=== PATIENT | male | born 1985 | race Two or more races ===

== ENCOUNTER 2024-03-30 17:23 | Emergency (ER) | payer MEDICAID, SELFPAY ==
--- NOTE | ~2024-03-30 | XR_ITS ---
EXAMINATION: XR HAND, LEFT CLINICAL INFORMATION: Pain following injury COMPARISON: June 20, 2009 TECHNIQUE: PA, lateral, and oblique views of the left hand. FINDINGS: There is no evidence of acute fracture. There is healed fracture deformity] midshaft of fifth metacarpal bone with marginal spurring. The rest of bones are unremarkable and soft tissues are normal. XR/XR hand LT 2V IMPRESSION: No acute fracture seen. Healed fracture deformity of fifth metacarpal Electronically signed by: Edinson Smith MD 03/30/2024 06:40 PM EDT RP
--- NOTE | ~2024-03-30 | XR_ITS ---
EXAMINATION: XR ELBOW, LEFT CLINICAL INFORMATION: Pain in elbow COMPARISON: None available. TECHNIQUE: AP, lateral, and oblique views of the left elbow. Positioning was difficult for this patient certainly images are suboptimal FINDINGS: The bones and soft tissues are normal. No fracture or joint effusion. Alignment is anatomic. Joint spaces are maintained. XR/XR elbow LT min 3V IMPRESSION: No fracture seen. Technically limited study Electronically signed by: Edinson Smith MD 03/30/2024 06:41 PM EDT
--- NOTE | ~2024-03-30 | CT_ITS ---
EXAM: CT HEAD WITHOUT CONTRAST CT CERVICAL SPINE INDICATION: head injury, pain TECHNIQUE: A noncontrast CT scan was performed from the skull base to the vertex. A noncontrast CT scan of the cervical spine was performed from the base of the skull through T1 at 2.5 mm and 0.625 mm collimation. Coronal and sagittal reformats were obtained at the acquisition workstation. This CT examination was performed using dose optimization techniques as appropriate, variously including the following: * Automated exposure control * Adjustment of mA and/or kV according to patient size (this includes techniques or standardized protocols for targeted exams where dose is matched to indication/reason for exam; i.e. extremities or head) * Use of iterative reconstruction technique Dose length product is 1136 mGy-cm. COMPARISON: CT head 10/03/2011 FINDINGS: Head: There is no evidence of acute intracranial hemorrhage or edematous large vessel territorial infarction. No abnormal mass effect or midline shift is seen. Leyva to white matter differentiation is well preserved. No abnormal extra-axial fluid collections are identified. The ventricles are normal in size. No abnormal attenuation in the brain parenchyma. Soft tissue swelling and scalp hematoma in the left frontoparietal region. No acute calvarial fracture.. The nasal septum is deviated to the right. Paranasal sinuses and mastoid air cells are well-aerated. Cervical Spine: The atlantooccipital and atlantoaxial articulations remain well aligned. Slight reversal of the normal cervical lordosis. Otherwise, there is anatomic alignment of the vertebral bodies and posterior elements. No evidence of acute fracture or subluxation. Multilevel mild disc degenerative changes, including C4-5, C5-6, C6-7. Bone central canal is maintained obtained.. No prevertebral soft tissue swelling. The paraspinal soft tissues are unremarkable. There is no cervical lymphadenopathy. The thyroid gland is unremarkable. The visualized lung apices are clear. CT/CT cervical spine wo IV con IMPRESSION: No CT evidence of acute intracranial hemorrhage or edematous territorial infarction. Soft tissue swelling and prominent scalp hematoma in the left frontoparietal region. No CT evidence of acute cervical spine fracture or malalignment. Mild cervical spondylosis. Electronically signed by: Zaire Michael MD 03/30/2024 06:25 PM EDT
[2024-03-30 17:31] VITALS: BP 116/78; PULSE 114; RESP 20; TEMP 37.2; O2SAT 98; BMI 25.1
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
[2024-03-30 18:37] LABS: MANUAL DIFF FLAG NO
[2024-03-30] MEDS: Diphth,Pertus(ACell),Tet Adult 0.5 ML SYRINGE IM (18:42)
[2024-03-30 18:44] LABS: Basophils Percent Auto 0.2 % (0-2); Eosinophils Percent Auto 0.1 % (0-4); Hematocrit 42.9 % (42.0-52.0); Hemoglobin 14.2 g/dl (14.0-18.0); Imm Gran Abs Auto 0.04 X10*3/uL (0.00-0.03); Imm Gran Pct Auto 0.4 % (0.0-0.4); Lymphocytes Percent Auto 11.4 % (20-40); Mean Corpuscular HGB Conc 33.1 g/dl (31.0-36.0); Mean Corpuscular Hemoglobin 30.1 pg (27.0-33.0); Mean Corpuscular Volume 91.1 fL (80.0-98.0); Mean Platelet Volume 9.3 fL (9.4-12.4); Monocytes Absolute Auto 0.8 X10*3/uL (0.1-1.2); Monocytes Percent Auto 8.6 % (2-11); Neutrophils Absolute Auto 7.2 x10*3/uL (2.0-8.3); Neutrophils Percent Auto 79.3 % (45-73); Platelet Count 238 X10*3/uL (160-400); Red Blood Count 4.71 X10*6/uL (4.60-5.80); Red Cell Distribution Width 15.2 % (11.0-16.0); White Blood Count 9.1 X10*3/uL (4.8-10.8)
[2024-03-30 18:52] LABS: Ethanol 35 mg/dL
[2024-03-30 18:56] LABS: Alanine Aminotransferase 52 U/L (0-40); Albumin Level 4.6 g/dL (3.5-5.0); Alkaline Phosphatase 72 U/L (39-117); Anion Gap 13 (12-20); Aspartate Amino Transferase 46 U/L (5-37); Bilirubin Total 0.7 mg/dL (0.0-1.0); Blood Urea Nitrogen 14 mg/dL (9-16); Calcium 9.6 mg/dL (8.4-10.2); Carbon Dioxide 27 mmol/L (22-29); Chloride 108 mmol/L (96-108); Creatinine Clr Calc Pharmacy 99.8; Estimated Glomerular Filt Rate > 60; Glucose Random 86 mg/dL (60-115); Magnesium 2.5 mg/dL (1.6-2.6); Potassium 3.3 mmol/L (3.3-5.1); Sodium 145 mmol/L (135-145); Total Protein 7.9 g/dL (6.5-8.0)
[2024-03-30] MEDS: Cyclobenzaprine HCl 5 MG TABLET PO (19:11)
--- NOTE | 2024-03-30 19:13 | PC.NURSE ---
Pt a&ox3, no signs of distress. Pt sitting up in bed, eating and drinking water. Pt denies allergies to meds Pt reports 12/27 pain Pt medicated per mar Plan of care ongoing.
[2024-03-30 19:17] LABS: Influenza A PCR NEGATIVE (Negative); Influenza B PCR NEGATIVE (Negative); Resp Syncy Virus RNA Qual PCR NEGATIVE (Negative); SARS COV2 PCR INHOUSE NEGATIVE (Negative)
--- NOTE | 2024-03-30 19:19 | PC.NURSE ---
This RN assumed pt care @ 1900. Plan of care ongoing.
[2024-03-30 19:52] VITALS: BP 140/86; PULSE 92; RESP 17; TEMP 36.8; O2SAT 100
[2024-03-30 20:01] VITALS: BP 140/86; PULSE 92; RESP 17; TEMP 36.8; O2SAT 100
--- NOTE | 2024-03-30 20:04 | PC.NURSE ---
Per provider Section not valid and pt is allowed to leave if he can produce a sober ride. Pts family arrived to the ED to pick him up. Pt d/c with family.
== END 2024-03-30 20:06 | disposition home or self-care (01) ==
PROVIDERS: Physician Assistant Medical; Emergency Provider Emergency Medicine
DX: F10.120 Alcohol abuse with intoxication, uncomplicated (principal); Y90.1 Blood alcohol level of 20-39 mg/100 ml; S00.01XA Abrasion of scalp, initial encounter; Y04.2XXA Assault by strike against or bumped into by another person, initial encounter; M25.522 Pain in left elbow; Z03.818 Encounter for observation for suspected exposure to other biological agents ruled out; Y93.9 Activity, unspecified; Y92.9 Unspecified place or not applicable; Y99.9 Unspecified external cause status; Z23 Encounter for immunization
CPT/HCPCS: 0241U; 36415; 70450; 72125; 73080; 73120; 80053; 80307; 83735; 85025; 90471; 90715; 99284

== ENCOUNTER 2025-05-14 11:02 | Outpatient (REF) | payer MEDICAID, SELFPAY ==
--- OUTSIDE RECORDS SUMMARY | 2025-04-25 06:21 | XMS_ITS ---
Author Organization [facility] Address [address] [place] [address] Care Team Providers Care Bakery Team Leader Name Role Phone [facility] Primary Care Provider [facility] Haseeb Unavailable [phone] REASON FOR VISIT correspondence Encounters Encounter Location Date Provider Diagnosis [facility] [address] [place], [place] [phone] 04/25/2025 [facility] Plan Of Treatment No Information Progress Notes * John HUMPHREYOB:[birth year] (39 yo M)Acc No.[id number]:04/25/2025 Patient: Armen HDEZlaisha :1985 A ge:39 Y S ex:Male Address:[address] [place], [place] [address], [place], [address] * * Date:
[2025-05-14 13:19] LABS: MANUAL DIFF FLAG NO
[2025-05-14 13:40] LABS: Hematocrit 42.1 % (42.0-52.0); Hemoglobin 14.0 g/dl (14.0-18.0); Imm Gran Abs Auto 0.03 X10*3/uL (0.00-0.03); Imm Gran Pct Auto 0.6 % (0.0-0.4); Lymphocytes Absolute Auto 1.7 X10*3/uL (1.2-4.9); Mean Corpuscular HGB Conc 33.3 g/dl (31.0-36.0); Mean Corpuscular Hemoglobin 28.9 pg (27.0-33.0); Mean Corpuscular Volume 87.0 fL (80.0-98.0); NRBC Abs Auto 0.000 X10*3/uL (0.0-0.012); NRBC Pct Auto 0.0 /100WBC (0.0-0.2); Platelet Count 191 X10*3/uL (160-400); Red Blood Count 4.84 X10*6/uL (4.60-5.80); White Blood Count 4.9 X10*3/uL (4.8-10.8)
[2025-05-14 14:20] LABS: Alanine Aminotransferase 56 U/L (0-40); Albumin Level 4.1 g/dL (3.5-5.0); Alkaline Phosphatase 51 U/L (39-117); Anion Gap 9 (12-20); Aspartate Amino Transferase 32 U/L (5-37); Blood Urea Nitrogen 9 mg/dL (9-16); Calcium 8.8 mg/dL (8.4-10.2); Carbon Dioxide 29 mmol/L (22-29); Chloride 106 mmol/L (96-108); Cholesterol 230 mg/dL (<200); Estimated Glomerular Filt Rate > 60; HDL Cholesterol 47 mg/dL (>40); Potassium 4.3 mmol/L (3.3-5.1); Sodium 140 mmol/L (135-145); Total Protein 6.3 g/dL (6.5-8.0); Triglycerides 216 mg/dL (<150)
--- OUTSIDE RECORDS SUMMARY | 2025-05-14 14:32 | XMS_ITS | Patient Health Record ---
Author Organization [facility] Address [address] [place] [address] Care Team Providers Care Stereotype Caster Name Role Phone [facility] [phone] Reason For Referral No Information Encounters Encounter Location Date Provider Diagnosis [facility] [address] [facility] [address] [place], [place] [id number] 04/12/2025 [facility] [address] [place], [place] [phone] 04/25/2025 [facility] Plan Of Treatment No Information Insurance Providers Payer Name Payer Address Payer Phone Subscriber Number Group Number Insured Name Patient Relationship to Insured Coverage Start Date Coverage End Date [place] Medicaid Standard [address] [place] [phone] [id number] Sanchez Lott Self - patient is the insured
--- OUTSIDE RECORDS SUMMARY | 2025-05-14 14:32 | XMS_ITS | Clinical Summary ---
Author Organization [facility] Address [address] [place] [address] Care Team Providers Care Tools Developer Name Role Phone Unavailable Primary Care Provider Unavailabl e Social History Tobacco Use Types Packs/Day Years Used Date Smoking Tobacco: Never Assessed Sex and Gender Information Value Date Recorded Sex Assigned at Not on file Legal Sex Male 1:46 AM EST Gender Identity Not on file Sexual Orientation Not on file Plan of Treatment Health Maintenance Due Date Last Done Comments DTaP,Tdap,and Td Vaccines (1 - Tdap) 2004 Hepatitis B Vaccines (1 of 3 - 19+ 3-dose series) 2004 HPV Vaccines (1 - 3-dose SCD M series) 2012 Depression Screening 06/20/2024 COVID-19 Vaccine (1 - 2024-2 6 season) 2025 Influenza Vaccine (#1) 2025 RSV Immunization Adult Patie nts (1 - 1-dose 75+ series) 2060 HIB Vaccines Aged Out No longer eligi ble based on patient's age to complete this topic Hepatitis A Vaccines Aged Out No long er eligible based on patient's age to complete this topic IPV Vaccines Aged Out No longer eligi ble based on patient's age to complete this topic MMR Vaccines Aged Out No longer eligi ble based on patient's age to complete this topic Meningococcal ACWY Vaccine Aged Out N o longer eligible based on patient's age to complete this topic Meningococcal B Vaccine Aged Out No l onger eligible based on patient's age to complete this topic Pneumococcal Vaccine: Pediat rics (0 to 5 Years) and At-Risk Patients (6 to 49 Years) Aged Out No longer eligible b ased on patient's age to complete this topic RSV Immunization Patients Un geronimo 20 months Aged Out No longer eligible b ased on patient's age to complete this topic Varicella Vaccines Aged Out No longer eligible based on patient's age to complete this topic
--- OUTSIDE RECORDS SUMMARY | 2025-05-14 14:32 | XMS_ITS | Clinical Summary ---
Author Organization [employer] Address [address] [place] [address] Care Team Providers Care Early Education Teacher Name Role Phone Elyssa Valera YASMIN Unavailable [phone] Irma Troncoso Unavailable Ayesha Avila MD Primary Care Provide r Allergies Active Allergy Reactions Criticality Noted Date Comments Bee Venom Swelling 03/13/2024 Active Problems Problem Noted Date Diagnosed Date Class 2 obesity due to exces s calories without serious comorbidity with body mass index (BMI) of 35.0 to 35.9 in adult 03/27/2025 Assessment & Plan (03/27/2025 4:18 PM EDT): Extensive counseling about healthy diet and exercise done today I will refer patient to database specialist I will order blood work and contact him with results Bipolar disorder, current episode mixed, moderat e ([facility]) 03/27/2025 Assessment & Plan (03/27/2025 4:18 PM EDT): Continue to follow with psychiatrist I ask for next appointment to help with fix's medication to put in the chart Mild episode of recurrent major depressive disor geronimo 03/27/2025 Assessment & Plan (03/27/2025 4:18 PM EDT): Continue to follow with psychiatrist and therapist He will provide with medication list on next appointment Encounters Date Type Department Care Team Description 04/26/2025 Travel 03/27/2025 2:15 PM EDT Office Visit [facility] [address] [place] [address] Ayesha Avila MD Class 2 obesity due to excess calories without serious comorbidity with body mass index (BMI) of 35.0 to 35.9 in adult (Primary Dx); Dietary counseling; Exercise counseling; Bipolar disorder, current episode mixed, moderate (CMS/HCC) (HCC); Encounter for immunization; Mild episode of recurrent major depressive disorder (CMS/HCC) 03/27/2025 Travel 03/26/2025 Telephone [facility] [address] [place] [address] Ayesha Avila MD chart prep 03/19/2025 Patient Outreach [facility] [address] [place] [address] Ayesha Avila MD Pre-visit Planning (SDOH screening negative and tobacco screening positive) from Last 3 Months Immunizations Immunization Administration Dates Next Due DTaP 09/12/2022 Hep A / Hep B 10/10/2022,09/12/2022,02/19/2022 INFLUENZA INJECTABLE QUADRIV ALANT CCIIV4 MDCK Multi-dose vial 03/25/2022 Influenza injectable quadriv alent IIV4 with preservative 04/12/2023 Influenza, seasonal, injecta ble, preservative free 03/27/2025 Td (adult), 5 Lf tetanus tox oid, preservative free, adsorbed 10/06/2015 Tdap 03/30/2024 Social History Tobacco Use Types Packs/Day Years Used Date Smoking Tobacco: Every Day Cigarettes Tobacco Cessation:Ready to Q uit: Not Asked; Counseling Given: Not Answered Depression Answer Date Recorded Patient Health Questionnaire-9 Score 10 03/27/2025 Patient Health Questionnaire-9 Score 10 03/27/2025 Last PHQ-9: Questionnaire Data Not on file 1 Housing Stability Answer Date Recorded What is your housing situation today? I have ander gordon 03/19/[address] you li ve. Do you have problems with any of the following? None of the above 03/19/2025 Food Insecurity Answer Date Recorded Within the past 12 months, y ou worried that your food would run out before you got money to buy more: Never True 03/19/2025 Within the past 12 months,th e food you bought just didn't last and you didn't have enough money to get more: Never True Transportation Answer Date Recorded In the past 12 months, has l ack of transportation kept you from medical appts, meetings, work or from getting things needed for daily living? No 03/19/2025 Utilities Answer Date Recorded In the past 12 months, has t he electric, gas, oil or water company threatened to shut off services in your home? No 03/19/2025 Depression Answer Date Recorded Patient Health Questionnaire-2 Score 1 03/27/2025 Internet Access Answer Date Recorded Internet Access Q1 Yes 03/19/2025 Internet Access Q2 Not on file 03/19/2025 Sex and Gender Information Value Date Recorded Sex Assigned at Male 04/19/2022 10:37 AM EDT Legal Sex Male 10:37 AM EDT Gender Identity Male 04/19/2022 10:37 AM EDT Sexual Orientation Don't know 04/19/2022 10 :37 AM EDT Last Filed Vital Signs Vital Sign Reading Time Taken Comments Blood Pressure 110/70 03/27/2025 2:12 PM EDT Pulse 106 03/27/2025 2:12 PM EDT Temperature 36.3 C (97.3 F) 03/27/2025 2:12 PM EDT Respiratory Rate 18 03/27/2025 2:12 PM EDT Oxygen Saturation 94% 03/27/2025 2:12 PM EDT Inhaled Oxygen Concentration - - Weight 106 kg (234 lb) 03/27/2025 2:12 PM EDT Height 170.2 cm (5' 7 ) 03/27/2025 2:12 PM EDT Body Mass Index 36.65 03/27/2025 2:12 PM EDT Plan of Treatment Upcoming Encounters Date Type Department Care Team (Late st Contact Info) Description 06/10/2025 1:30 PM EST Telemedicine [facility] [address] [place] [address] Ayesha Avila MD [address] [place] [address] 06/10/2025 2:00 PM EST Nutrition [facility] [address] [place] [address] Whit Stacy, RD [address] [place] [address] Health Maintenance Due Date Last Done Comments Family Planning (PISQ) 2000 HPV Vaccines (1 - Male 3-dose series) 2000 Pneumococcal Vaccine: Pediatrics (0 to 5 Years) and At-Risk Patients (6 to 49) Years (1 of 2 - PCV) 2004 Hepatitis B Vaccines (4 of 4 - Hep B Twinrix 4-dose series) 02/19/2023 10/10/2022, 09/12/2022, 02/19/2022 COVID-19 Vaccine (6 - season) 2025 04/12/2023, 04/28/2022, 07/21/2021, Additional history exists Depression Monitoring 09/25/2025 03/27/2025, 025 SDOH Screening 03/19/2026 03/19/2025 Alcohol/Substance Use Screening 03/27/2026 03/27/2025 Tobacco Screening 03/27/2026 03/27/2025 Disability Screening 04/26/2026 04/26/2025 Lipid Panel 05/14/2030 05/14/2025, 12/16/2020 DTaP/Tdap/Td Vaccines (3 - Td or Tdap) 03/30/2034 03/30/2024, 09/12/2022, 10/06/2015 Zoster Vaccines (1 of 2) 12/29/2035 RSV Patients and Patients Aged 60 years or older (1 - 1-dose 75+ series) 2060 HIV Screening Completed 12/16/2020 Hepatitis C Screening Completed 12/16/2020 Hepatitis A Vaccines Aged Out 10/10/2022, 09/12/2022, 02/19/2022 No longer eligible based on patient's age to complete this topic Influenza Vaccine Completed 03/27/2025, , 03/25/2022 HIB Vaccines Aged Out No longer eligi ble based on patient's age to complete this topic IPV Vaccines Aged Out No longer eligi ble based on patient's age to complete this topic Meningococcal B Vaccine Aged Out No l onger eligible based on patient's age to complete this topic Meningococcal Vaccine Aged Out No russ mary eligible based on patient's age to complete this topic RSV under 20 months Aged Out No longe r eligible based on patient's age to complete this topic Rotavirus Vaccines Aged Out No longer eligible based on patient's age to complete this topic Procedures Procedure Name Priority Date/Time Associated Diagnosis Comments TSH W/REFLEX TO FT4 Routine 05/14/2025 1 1:23 AM EST Class 2 obesity due to excess calories without serious comorbidity with body mass index (BMI) of 35.0 to 35.9 in adult Bipolar disorder, current episode mixed, moderate (CMS/HCC) (HCC) VITAMIN D,25-OH,TOTAL,IA Routine 05/14/2025 11:23 AM EST Class 2 obesity due to excess calories without serious comorbidity with body mass index (BMI) of 35.0 to 35.9 in adult Bipolar disorder, current episode mixed, moderate (CMS/HCC) (HCC) LIPID PANEL, STANDARD Routine 05/14/2025 11:23 AM EST Class 2 obesity due to excess calories without serious comorbidity with body mass index (BMI) of 35.0 to 35.9 in adult Bipolar disorder, current episode mixed, moderate (CMS/HCC) (HCC) HEMOGLOBIN A1C Routine 05/14/2025 11:23 AM EST Class 2 obesity due to excess calories without serious comorbidity with body mass index (BMI) of 35.0 to 35.9 in adult Bipolar disorder, current episode mixed, moderate (CMS/HCC) (HCC) COMPREHENSIVE METABOLIC PANEL Routine 05/14/2025 11:23 AM EST Class 2 obesity due to excess calories without serious comorbidity with body mass index (BMI) of 35.0 to 35.9 in adult Bipolar disorder, current episode mixed, moderate (CMS/HCC) (HCC) CBC WITH AUTO DIFFERENTIAL Routine 05/14/2025 11:23 AM EST Class 2 obesity due to excess calories without serious comorbidity with body mass index (BMI) of 35.0 to 35.9 in adult Bipolar disorder, current episode mixed, moderate (CMS/HCC) (HCC) ZZZ HISTORICAL HEPATITIS C AB W/REFL TO HCV RNA, QN, PCR Routine 12/16/2020 10:58 AM EDT HIV 1/2 ANTIGEN/ANTIBODY, FOURTH GENERATION W/RFL Routine 12/16/2020 10:58 AM EDT from Last 3 Months or Most Recently Relevant to Health Maintenance Results * (ABNORMAL) Vitamin D, 25-Hydroxy, Total, Immunoassay (05/14/2025 11:23 AM EST) Vitamin D 25-OH Total 24.2(L) >30 ng/mL [facility] Comment: Health Based Reference Values*< 20 ng/mL Cybjhtwdc12-06 ng/mL Insufficient> 30 ng/mL Sufficient*Josef GAY. N Engl J Med. 2007;[id number]:[id number] is no well-established upper level of normal vitamin Dlevels. Some laboratories use 50 ng/mL as an upper limit ofnormal. However, toxicity is patient-dependent and may occurat any level. Careful correlation with the patient'spresentation is necessary and, if there is concern forvitamin D toxicity, treatment should be consideredirrespective of the serum level.Care must be taken in interpreting Vitamin D results fromdifferent laboratories and methodologies. Published datademonstrated that results from patients undergoinghemodialysis may show a negative bias when tested withvarious automated 25-OH vitamin D assays when compared toLC-MS/MS.When testing samples from patients whose predominant form ofVitamin D is Vitamin D2, such as patients receiving VitaminD2 supplementation, results that are subtherapeutic shouldbe confirmed with another method such as LC-MS/MS. Blood Venous blood specimen / Unknown 05/14/2025 11:23 AM EST 05/14/2025 1:11 PM EST us Ayesha Porter MD LAB BLOOD ORDERABLES Final Result [facility] [address] [place] [phone] * TSH with Reflex to Free T4 (05/14/2025 11:23 AM EST) TSH reflex Free T4 2.69 0.32 - 4.0 uIU/mL [facility] Blood Venous blood specimen / Unknown 05/14/2025 11:23 AM EST 05/14/2025 1:11 PM EST us Ayesha Porter MD LAB BLOOD ORDERABLES Final Result [facility] [address] [place] [address] [phone] * (ABNORMAL) CBC auto differential (05/14/2025 11:23 AM EST) White Blood Count 4.9 4.8 - 10.8 X10*3/uL [facility] Red Blood Count 4.84 4.60 - 5.80 X10*6/uL [facility] Hemoglobin 14.0 14.0 - 18.0 g/dl [facility] Hematocrit 42.1 42.0 - 52.0 % [facility] Mean Corpuscular Volume 87.0 80.0 - 98.0 fL [facility] Mean Corpuscular Hemoglobin 28.9 27.0 - 33.0 pg [facility] Mean Corpuscular HGB Conc 33.3 31.0 - 36.0 g/dl [facility] Red Cell Distribution Width 14.0 11.0 - 16.0 % [facility] Platelet Count 191 160 - 400 X10*3/uL [facility] Mean Platelet Volume 9.6 9.4 - 12.4 fL [facility] Neutrophils Percent Auto 53.6 45 - 73 % [facility] Imm Gran Pct Auto 0.6(H) 0.0 - 0.4 % [facility] Lymphocytes Percent Auto 33.7 20 - 40 % [facility] Monocytes Percent Auto 7.8 2 - 11 % [facility] Eosinophils Percent Auto 3.3 0 - 4 % [facility] Basophils Percent Auto 1.0 0 - 2 % [facility] NRBC Pct Auto 0.0 0.0 - 0.2 /100WBC [facility] Neutrophils Absolute Auto 2.6 2.0 - 8.3 x10*3/uL [facility] Imm Gran Abs Auto 0.03 0.00 - 0.03 X10*3/uL [facility] Lymphocytes Absolute Auto 1.7 1.2 - 4.9 X10*3/uL [facility] Monocytes Absolute Auto 0.4 0.1 - 1.2 X10*3/uL [facility] Eosinophils Absolute Auto 0.2 0.0 - 0.4 X10*3/uL [facility] Basophils Absolute Auto 0.1 0.0 - 0.2 X10*3/uL [facility] NRBC Abs Auto 0.000 0.0 - 0.012 X10*3/uL [facility] Blood Venous blood specimen / Unknown 05/14/2025 11:23 AM EST 05/14/2025 1:11 PM EST us Ayesha Porter MD LAB BLOOD ORDERABLES Final Result [facility] [address] [place] [phone] * Hemoglobin A1c (05/14/2025 11:23 AM EST) Hemoglobin A1c 5.6 <6.0 % [facility] Comment:Hemoglobin A1C Refer ence Range Adults: 4.8 - 6.0 % Non diabetic: < 6.0 % Goal: < 7.0 %Additional Action Suggested: > 8.0 %Note: Hemoglobin A1c results are invalid for patients with abnormal amounts of HbF. Blood transfusions may impact the HbA1c concentration in the patient sample. Estimated Average Glucose 114 mg/dL [facility] Comment:eAG = Estimated ave rage glucose which is %A1C expressed asaverage glucose, using the formula of the A7D-ObcbvekJroillp Glucose study (ADAG), Diabetes Care, Vol.31,#8,Jan. 2007 Blood Venous blood specimen / Unknown 05/14/2025 11:23 AM EST 05/14/2025 1:11 PM EST us Ayesha Porter MD LAB BLOOD ORDERABLES Final Result Performing Organization Address [facility] de Phone Number [facility] [address] [place] [address] [phone] * (ABNORMAL) Lipid Panel, Standard (05/14/2025 11:23 AM EST) Triglycerides 216(H) <150 mg/dL [facility] Comment:Desirable Triglyceri de: less than 150 mg/dLBorderline High Triglyceride 150-199 mg/dLHigh Triglyceride: 200-499 mg/dLVery High Triglyceride: greater than or equal to 5OO mg/dL Cholesterol 230(H) <200 mg/dL [facility] Comment:Desirable Cholestero l: less than 200 mg/dLBorderline High Cholesterol: 200-239 mg/dLHigh Cholesterol: greater than 239 mg/dL LDL Cholesterol Calculated 140(H) <100 mg/dL [facility] Comment:Desirable LDL: less than 100 mg/dLNear Optimal/Above Optimal LDL: 110- 129 mg/dLBorderline High LDL: 130-159 mg/dLHigh LDL: 160-189 mg/dLVery High LDL: greater than or equal to 190 mg/dL HDL Cholesterol 47 >40 mg/dL [facility] Comment:Desirable HDL: great er than 40 mg/dL Note: This HDL assay may give artificially low results in patients with liver disease. Blood Venous blood specimen / Unknown 05/14/2025 11:23 AM EST 05/14/2025 1:11 PM EST us Ayesha Porter MD LAB BLOOD ORDERABLES Final Result Performing Organization Address [facility] Co de Phone Number [facility] [address] [place] [phone] * (ABNORMAL) Comprehensive Metabolic Panel (05/14/2025 11:23 AM EST) Sodium 140 135 - 145 mmol/L [facility] Potassium 4.3 3.3 - 5.1 mmol/L [facility] Chloride 106 96 - 108 mmol/L [facility] Carbon Dioxide 29 22 - 29 mmol/L [facility] Anion Gap 9(L) 12 - 20 [facility] Urea Nitrogen (BUN) 9 9 - 16 mg/dL [facility] Creatinine, Serum 1.06 0.5 - 1.4 mg/dL [facility] Estimated Glomerular Filt Rate >60 [facility] Comment:Chronic Kidney Disea se: Estimated GFR < 60 mL/min/[id number] Kidney Disease: Estimated GFR < 15 mL/min/1.73m2 Glucose 97 60 - 115 mg/dL [facility] Calcium 8.8 8.4 - 10.2 mg/dL [facility] Bilirubin, Total 0.3 0.0 - 1.0 mg/dL [facility] Aspartate Amino Transferase 32 5 - 37 U/L [facility] Alanine Aminotransferase 56(H) 0 - 40 U/L [facility] Total Protein 6.3(L) 6.5 - 8.0 g/dL [facility] Albumin Level 4.1 3.5 - 5.0 g/dL [facility] Alkaline Phosphatase 51 39 - 117 U/L [facility] Blood Venous blood specimen / Unknown 05/14/2025 11:23 AM EST 05/14/2025 1:11 PM EST us Ayesha Porter MD LAB BLOOD ORDERABLES Final Result [facility] [address] [place], [place] [phone] * HEPATITIS C AB W/REFL TO HCV RNA, QN, PCR (12/16/2020 10:58 AM EDT) HEPATITIS C ANTIBODY NON-REACT LUIS NON-REACT LUIS [facility] INDEX 0.02 <1.00 [facility] Comment: HCV antibody was non-reactive. There is no laboratory evidence of HCV infection. In most cases, no further action is required. However, if recent HCV exposure is suspected, a test for HCV RNA (test code 57235) is suggested. For additional information please refer to http://E-Buy.Akermin/faq/ICE85p5 (This link is being provided for informational/ educational purposes only.) 12/16/2020 10:5 8 AM EDT Irma Troncoso ANP HISTORICAL/NON ORDERABLE LABS Fi nal Result Performing Organization Address [facility] de Phone Number [facility] [address] * HIV 1/2 ANTIGEN/ANTIBODY,FOURTH GENERATION W/RFL (12/16/2020 10:58 AM EDT) HIV-1/2 ANTIGEN AND ANTIBODIES, 4TH GENERATION W/ REFLEX NON-REACT LUIS NON-REACT LUIS [facility] Comment: HIV-1 antigen and HIV-1/HIV-2 antibodies were not detected. There is no laboratory evidence of HIV infection. PLEASE NOTE: This information has been disclosed to you from records whose confidentiality may be protected by state law. If your state requires such protection, then the state law prohibits you from making any further disclosure of the information without the specific written consent of the person to whom it pertains, or as otherwise permitted by law. A general authorization for the release of medical or other information is NOT sufficient for this purpose. For additional information please refer to http://E-Buy.Akermin/faq/FQJ503 (This link is being provided for informational/ educational purposes only.) The performance of this assay has not been clinically validated in patients less than 2 years old. 12/16/2020 10:5 8 AM EDT us Irma Troncoso ANP LAB BLOOD ORDERABLES Final Resul t Performing Organization Address [facility] Co de Phone Number [facility] [address] from Last 3 Months or Most Recently Relevant to Health Maintenance Insurance [facility] C3 Care Teams Early Education Teacher Relationship Specialty Start Date End Date Ayesha Avila MD [address] [place] [phone] PCP - General Internal Medicine 04/09/25 Elyssa Valera FNP [address] [place] [phone] [facility] 04/16/22 Irma Troncoso ANP [address] [place] [address] [facility] 04/16/22
[2025-05-15 05:54] LABS: HIV Num 1 0.06 S/CO (0.00-0.99); ~HepC Num1 0.13 S/CO (0.00-0.79); ~Hepatitis C Antibody Nonreactive (Nonreactive)
== END 2025-05-14 11:03 | disposition home or self-care (01) ==
LOC: HO.HHCL 11:02
PROVIDERS: PCP Internal Medicine; Visit Provider Internal Medicine
DX: Z11.4 Encounter for screening for human immunodeficiency virus [HIV] (principal); Z11.59 Encounter for screening for other viral diseases; F31.62 Bipolar disorder, current episode mixed, moderate; E66.812 Obesity, class 2; Z68.35 Body mass index [BMI] 35.0-35.9, adult
CPT/HCPCS: 36415; 80053; 80061; 82306; 83036; 84443; 85025; 86803; 87389